=== PATIENT | male | born 1930 | race Caucasian/White ===

== ENCOUNTER 2019-08-12 13:41 | Inpatient (IN) | payer MEDICARE, MEDICAID ==
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
[2019-08-12 18:03] LABS: ABS Eosinophils 0.2 10^3/ul (0-0.6); ABS Lymphocytes 1.6 10^3/ul (1.0-4.8); ABS Monocytes 1.1 10^3/ul (0-0.8); ABS Neutrophils 3.4 10^3/ul (1.5-7.7); Eosinophil % 2.8 %; Hematocrit 33 % (42-52); Mean Corpuscular HGB Conc 33 g/dL (31-36); Mean Corpuscular Hemoglobin 27 pg (27-31); Mean Corpuscular Volume 80 fL (80-94); Mean Platelet Volume 8.5 fL (7.4-10.4); Platelet Count 257 10^3/uL (150-450); Red Blood Count 4.12 10^6 /uL (4.18-5.48); Red Cell Distribution Width 16 % (10-15); White Blood Count 6.3 10^3/uL (3.5-10.8)
[2019-08-12] MEDS ORDERED: Acetaminophen TAB* 325 MG PO PRN (18:07)
[2019-08-12 18:14] LABS: Troponin I 0.01 ng/mL (<0.03)
[2019-08-12 18:17] LABS: ALT 23 U/L (7-52); AST 27 U/L (13-39); Acetaminophen < 15 mcg/mL; Albumin 3.6 g/dL (3.2-5.2); Albumin/Globulin Ratio 0.9 (1-3); Alcohol < 10 mg/dL (<10); Alkaline Phosphatase 115 U/L (34-104); Anion Gap 6 mmol/L (2-11); BUN/Creatinine Ratio 21.1 (8-20); Blood Urea Nitrogen 20 mg/dL (6-24); CO2 Carbon Dioxide 28 mmol/L (22-32); Calcium 9.3 mg/dL (8.6-10.3); Chloride 106 mmol/L (101-111); Creatine Kinase 530 U/L (10-223); EGFR African American 90.5 (>60); EGFR Non-African American 74.8 (>60); Globulin 3.8 g/dL (2-4); Glucose 109 mg/dL (70-100); Potassium 4.2 mmol/L (3.5-5.0); Sodium 140 mmol/L (135-145); Total Protein 7.4 g/dL (6.4-8.9)
[2019-08-12 18:26] LABS: TSH (Thyroid Stimulating Horm) 2.62 mcIU/mL (0.34-5.60)
[2019-08-12 19:34] LABS: Urine Appearance Clear; Urine Bilirubin Negative (Negative); Urine Blood Negative (Negative); Urine Color Straw; Urine Glucose Negative (Negative); Urine Ketones Negative (Negative); Urine Nitrite Negative (Negative); Urine Protein Negative (Negative); Urine Specific Gravity 1.006 (1.010-1.030); Urine Urobilinogen Negative (Negative)
[2019-08-12] MEDS: Docusate CAP* 100 MG PO SCH (19:50)
[2019-08-12] MEDS: QUEtiapine TAB* 100 MG PO SCH (19:50)
[2019-08-12] MEDS: amLODIPine TAB* 5 MG PO SCH (19:50)
[2019-08-12] MEDS: hydrALAZINE IV* 20 MG/ML VIAL IV SLOW PU PRN (19:50)
[2019-08-12 19:52] LABS: Urine Benzodiazepine Screen None Detected (None Detect); Urine Opiates Screen None Detected (None Detect)
[2019-08-12] MEDS: Enoxaparin(*) 40 MG/0.4 ML SYR SUBCUT SCH (20:35)
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
[2019-08-13] MEDS: hydrALAZINE IV* 20 MG/ML VIAL IV SLOW PU PRN (09:27)
[2019-08-13] MEDS: Lisinopril TAB* 10 MG PO SCH (09:30)
[2019-08-13] MEDS: Memantine TAB* 5 MG PO SCH (09:30)
[2019-08-13] MEDS: Cholecalciferol TAB* 1000 UNITS PO SCH (09:30)
[2019-08-13] MEDS: Docusate CAP* 100 MG PO SCH ×2 (09:31→22:00)
[2019-08-13] MEDS: Donepezil TAB* 5 MG PO SCH (09:31)
[2019-08-13] MEDS: amLODIPine TAB* 5 MG PO SCH (09:31)
[2019-08-13] MEDS: Aspirin EC TAB* 81 MG TAB.EC PO SCH (09:31)
[2019-08-13] MEDS: Atenolol TAB* 50 MG PO SCH (09:31)
[2019-08-13] MEDS: QUEtiapine TAB* 100 MG PO SCH ×2 (09:32→22:00)
[2019-08-13] MEDS: Atorvastatin* 40 MG TAB PO SCH (17:24)
[2019-08-13] MEDS: Enoxaparin(*) 40 MG/0.4 ML SYR SUBCUT SCH (22:01)
[2019-08-14] MEDS: Lisinopril TAB* 10 MG PO SCH (10:18)
[2019-08-14] MEDS: Donepezil TAB* 5 MG PO SCH (10:18)
[2019-08-14] MEDS: Atenolol TAB* 50 MG PO SCH (10:19)
[2019-08-14] MEDS: Cholecalciferol TAB* 1000 UNITS PO SCH (10:19)
[2019-08-14] MEDS: amLODIPine TAB* 5 MG PO SCH (10:19)
[2019-08-14] MEDS: QUEtiapine TAB* 100 MG PO SCH ×2 (10:19→20:14)
[2019-08-14] MEDS: Aspirin EC TAB* 81 MG TAB.EC PO SCH (10:19)
[2019-08-14] MEDS: Docusate CAP* 100 MG PO SCH ×2 (10:19→20:14)
[2019-08-14] MEDS ORDERED: Magnesium Hydroxide LIQ* 30 ML UDC PO PRN (11:06)
[2019-08-14] MEDS ORDERED: Polyethylene Glycol 3350* 17 GM PACKET PO PRN (11:06)
[2019-08-14] MEDS ORDERED: Senna TAB 8.6 mg* TAB PO PRN (11:06)
[2019-08-14] MEDS: Memantine TAB* 5 MG PO SCH (11:23)
[2019-08-14] MEDS: Atorvastatin* 40 MG TAB PO SCH (16:53)
[2019-08-14] MEDS: Enoxaparin(*) 40 MG/0.4 ML SYR SUBCUT SCH (20:14)
[2019-08-14] MEDS: Magnesium Hydroxide LIQ* 30 ML UDC PO SCH (20:14)
[2019-08-14] MEDS ORDERED: Docusate CAP* 100 MG PO SCH (21:00)
[2019-08-15] MEDS: hydrALAZINE IV* 20 MG/ML VIAL IV SLOW PU PRN (03:15)
[2019-08-15] MEDS: Aspirin EC TAB* 81 MG TAB.EC PO SCH (08:41)
[2019-08-15] MEDS: Magnesium Hydroxide LIQ* 30 ML UDC PO SCH ×2 (08:41→20:50)
[2019-08-15] MEDS: Lisinopril TAB* 10 MG PO SCH (08:41)
[2019-08-15] MEDS: Cholecalciferol TAB* 1000 UNITS PO SCH (08:41)
[2019-08-15] MEDS: Atenolol TAB* 50 MG PO SCH (08:41)
[2019-08-15] MEDS: Docusate CAP* 100 MG PO SCH ×2 (08:41→20:49)
[2019-08-15] MEDS: amLODIPine TAB* 5 MG PO SCH (08:42)
[2019-08-15] MEDS: Donepezil TAB* 5 MG PO SCH (08:42)
[2019-08-15] MEDS: QUEtiapine TAB* 100 MG PO SCH ×2 (10:09→20:49)
[2019-08-15] MEDS: Memantine TAB* 5 MG PO SCH (10:09)
[2019-08-15] MEDS: Atorvastatin* 40 MG TAB PO SCH (17:14)
[2019-08-15] MEDS: Enoxaparin(*) 40 MG/0.4 ML SYR SUBCUT SCH (20:50)
[2019-08-16] MEDS: Magnesium Hydroxide LIQ* 30 ML UDC PO SCH ×2 (08:16→20:43)
[2019-08-16] MEDS: amLODIPine TAB* 5 MG PO SCH (08:16)
[2019-08-16] MEDS: Atenolol TAB* 50 MG PO SCH (08:17)
[2019-08-16] MEDS: Docusate CAP* 100 MG PO SCH ×2 (08:17→20:43)
[2019-08-16] MEDS: Lisinopril TAB* 10 MG PO SCH (08:17)
[2019-08-16] MEDS: Aspirin EC TAB* 81 MG TAB.EC PO SCH (08:17)
[2019-08-16] MEDS: Cholecalciferol TAB* 1000 UNITS PO SCH (08:17)
[2019-08-16] MEDS: Donepezil TAB* 5 MG PO SCH (08:17)
[2019-08-16] MEDS: QUEtiapine TAB* 100 MG PO SCH ×2 (08:17→20:43)
[2019-08-16] MEDS: Memantine TAB* 5 MG PO SCH (08:17)
[2019-08-16] MEDS: Atorvastatin* 40 MG TAB PO SCH (17:02)
[2019-08-16] MEDS: Enoxaparin(*) 40 MG/0.4 ML SYR SUBCUT SCH (20:43)
[2019-08-17] MEDS: Atenolol TAB* 50 MG PO SCH (08:00)
[2019-08-17] MEDS: Lisinopril TAB* 10 MG PO SCH (08:01)
[2019-08-17] MEDS: Cholecalciferol TAB* 1000 UNITS PO SCH (08:01)
[2019-08-17] MEDS: Donepezil TAB* 5 MG PO SCH (08:01)
[2019-08-17] MEDS: Memantine TAB* 5 MG PO SCH (08:01)
[2019-08-17] MEDS: Aspirin EC TAB* 81 MG TAB.EC PO SCH (08:01)
[2019-08-17] MEDS: amLODIPine TAB* 5 MG PO SCH (08:02)
[2019-08-17] MEDS: Docusate CAP* 100 MG PO SCH ×2 (08:02→20:53)
[2019-08-17] MEDS: QUEtiapine TAB* 100 MG PO SCH ×2 (08:03→20:52)
[2019-08-17] MEDS: Magnesium Hydroxide LIQ* 30 ML UDC PO SCH ×2 (08:04→20:52)
[2019-08-17] MEDS: Atorvastatin* 40 MG TAB PO SCH (16:12)
[2019-08-17] MEDS: Enoxaparin(*) 40 MG/0.4 ML SYR SUBCUT SCH (20:53)
[2019-08-18] MEDS: Magnesium Hydroxide LIQ* 30 ML UDC PO SCH (08:51)
[2019-08-18] MEDS: Lisinopril TAB* 10 MG PO SCH (08:52)
[2019-08-18] MEDS: Docusate CAP* 100 MG PO SCH ×2 (08:52→20:06)
[2019-08-18] MEDS: Donepezil TAB* 5 MG PO SCH (08:52)
[2019-08-18] MEDS: Memantine TAB* 5 MG PO SCH (08:53)
[2019-08-18] MEDS: amLODIPine TAB* 5 MG PO SCH (08:53)
[2019-08-18] MEDS: QUEtiapine TAB* 100 MG PO SCH ×2 (08:55→20:06)
[2019-08-18] MEDS: Atenolol TAB* 50 MG PO SCH (08:55)
[2019-08-18] MEDS: Aspirin EC TAB* 81 MG TAB.EC PO SCH (08:55)
[2019-08-18] MEDS: Cholecalciferol TAB* 1000 UNITS PO SCH (10:11)
[2019-08-18] MEDS: Atorvastatin* 40 MG TAB PO SCH (17:53)
[2019-08-18] MEDS: Enoxaparin(*) 40 MG/0.4 ML SYR SUBCUT SCH (20:07)
[2019-08-19] MEDS: QUEtiapine TAB* 100 MG PO SCH ×2 (08:36→21:55)
[2019-08-19] MEDS: amLODIPine TAB* 5 MG PO SCH (08:37)
[2019-08-19] MEDS: Lisinopril TAB* 10 MG PO SCH (08:37)
[2019-08-19] MEDS: Memantine TAB* 5 MG PO SCH (08:38)
[2019-08-19] MEDS: Donepezil TAB* 5 MG PO SCH (08:38)
[2019-08-19] MEDS: Atenolol TAB* 50 MG PO SCH (08:39)
[2019-08-19] MEDS: Docusate CAP* 100 MG PO SCH ×2 (08:39→21:55)
[2019-08-19] MEDS: Aspirin EC TAB* 81 MG TAB.EC PO SCH (08:39)
[2019-08-19] MEDS: Cholecalciferol TAB* 1000 UNITS PO SCH (08:39)
[2019-08-19] MEDS: Atorvastatin* 40 MG TAB PO SCH (17:25)
[2019-08-19] MEDS: Enoxaparin(*) 40 MG/0.4 ML SYR SUBCUT SCH (21:56)
[2019-08-20] MEDS: QUEtiapine TAB* 100 MG PO SCH ×2 (08:08→21:24)
[2019-08-20] MEDS: Donepezil TAB* 5 MG PO SCH (08:09)
[2019-08-20] MEDS: amLODIPine TAB* 5 MG PO SCH (08:09)
[2019-08-20] MEDS: Cholecalciferol TAB* 1000 UNITS PO SCH (08:09)
[2019-08-20] MEDS: Lisinopril TAB* 10 MG PO SCH (08:09)
[2019-08-20] MEDS: Atenolol TAB* 50 MG PO SCH (08:09)
[2019-08-20] MEDS: Docusate CAP* 100 MG PO SCH ×2 (08:09→21:24)
[2019-08-20] MEDS: Memantine TAB* 5 MG PO SCH (08:09)
[2019-08-20] MEDS: Aspirin EC TAB* 81 MG TAB.EC PO SCH (08:09)
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
[2019-08-20] MEDS: Atorvastatin* 40 MG TAB PO SCH (16:38)
[2019-08-20] MEDS: Enoxaparin(*) 40 MG/0.4 ML SYR SUBCUT SCH (21:25)
[2019-08-21 05:49] LABS: Hematocrit 28 % (42-52); Mean Platelet Volume 8.3 fL (7.4-10.4); Platelet Count 238 10^3/uL (150-450)
[2019-08-21 06:04] LABS: EGFR African American 75.6 (>60); EGFR Non-African American 62.5 (>60)
[2019-08-21] MEDS: Cholecalciferol TAB* 1000 UNITS PO SCH (10:26)
[2019-08-21] MEDS: QUEtiapine TAB* 100 MG PO SCH ×2 (10:27→22:55)
[2019-08-21] MEDS: Donepezil TAB* 5 MG PO SCH (10:27)
[2019-08-21] MEDS: Aspirin EC TAB* 81 MG TAB.EC PO SCH (10:28)
[2019-08-21] MEDS: Docusate CAP* 100 MG PO SCH ×2 (10:28→22:55)
[2019-08-21] MEDS: Lisinopril TAB* 10 MG PO SCH (10:28)
[2019-08-21] MEDS: Memantine TAB* 5 MG PO SCH (10:28)
[2019-08-21] MEDS: amLODIPine TAB* 5 MG PO SCH (10:29)
[2019-08-21] MEDS: Atenolol TAB* 50 MG PO SCH (10:29)
[2019-08-21] MEDS: Atorvastatin* 40 MG TAB PO SCH (16:44)
[2019-08-21] MEDS: Enoxaparin(*) 40 MG/0.4 ML SYR SUBCUT SCH (22:56)
[2019-08-22] MEDS: Cholecalciferol TAB* 1000 UNITS PO SCH (09:43)
[2019-08-22] MEDS: amLODIPine TAB* 5 MG PO SCH (09:44)
[2019-08-22] MEDS: Memantine TAB* 5 MG PO SCH (09:44)
[2019-08-22] MEDS: Lisinopril TAB* 10 MG PO SCH (09:44)
[2019-08-22] MEDS: Aspirin EC TAB* 81 MG TAB.EC PO SCH (09:45)
[2019-08-22] MEDS: Donepezil TAB* 5 MG PO SCH (09:45)
[2019-08-22] MEDS: Atenolol TAB* 50 MG PO SCH (09:45)
[2019-08-22] MEDS: Docusate CAP* 100 MG PO SCH ×2 (09:45→19:56)
[2019-08-22] MEDS: QUEtiapine TAB* 100 MG PO SCH ×2 (09:46→19:56)
[2019-08-22] MEDS: Atorvastatin* 40 MG TAB PO SCH (17:08)
[2019-08-22] MEDS: Enoxaparin(*) 40 MG/0.4 ML SYR SUBCUT SCH (19:56)
[2019-08-23] MEDS: Lisinopril TAB* 10 MG PO SCH (09:39)
[2019-08-23] MEDS: Atenolol TAB* 50 MG PO SCH (09:40)
[2019-08-23] MEDS: QUEtiapine TAB* 100 MG PO SCH ×2 (09:40→20:09)
[2019-08-23] MEDS: Donepezil TAB* 5 MG PO SCH (09:41)
[2019-08-23] MEDS: Memantine TAB* 5 MG PO SCH (09:41)
[2019-08-23] MEDS: Cholecalciferol TAB* 1000 UNITS PO SCH (09:41)
[2019-08-23] MEDS: Docusate CAP* 100 MG PO SCH ×2 (09:41→20:09)
[2019-08-23] MEDS: Aspirin EC TAB* 81 MG TAB.EC PO SCH (09:41)
[2019-08-23] MEDS: amLODIPine TAB* 5 MG PO SCH (09:42)
[2019-08-23] MEDS: Atorvastatin* 40 MG TAB PO SCH (17:30)
[2019-08-23] MEDS: Enoxaparin(*) 40 MG/0.4 ML SYR SUBCUT SCH (20:09)
[2019-08-24] MEDS: QUEtiapine TAB* 100 MG PO SCH ×2 (09:04→19:34)
[2019-08-24] MEDS: Aspirin EC TAB* 81 MG TAB.EC PO SCH (09:04)
[2019-08-24] MEDS: Atenolol TAB* 50 MG PO SCH (09:04)
[2019-08-24] MEDS: Donepezil TAB* 5 MG PO SCH (09:04)
[2019-08-24] MEDS: Lisinopril TAB* 10 MG PO SCH (09:04)
[2019-08-24] MEDS: Cholecalciferol TAB* 1000 UNITS PO SCH (09:04)
[2019-08-24] MEDS: Memantine TAB* 5 MG PO SCH (09:05)
[2019-08-24] MEDS: Docusate CAP* 100 MG PO SCH ×2 (09:05→19:34)
[2019-08-24] MEDS: amLODIPine TAB* 5 MG PO SCH (09:05)
[2019-08-24] MEDS: Atorvastatin* 40 MG TAB PO SCH (17:33)
[2019-08-24] MEDS: Enoxaparin(*) 40 MG/0.4 ML SYR SUBCUT SCH (19:34)
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
[2019-08-25 08:06] VITALS: BP 175/72
[2019-08-25] MEDS: Cholecalciferol TAB* 1000 UNITS PO SCH (09:09)
[2019-08-25] MEDS: Aspirin EC TAB* 81 MG TAB.EC PO SCH (09:09)
[2019-08-25] MEDS: QUEtiapine TAB* 100 MG PO SCH (09:09)
[2019-08-25] MEDS: Docusate CAP* 100 MG PO SCH (09:10)
[2019-08-25] MEDS: Donepezil TAB* 5 MG PO SCH (09:10)
[2019-08-25] MEDS: Lisinopril TAB* 10 MG PO SCH (09:10)
[2019-08-25] MEDS: Atenolol TAB* 50 MG PO SCH (09:10)
[2019-08-25] MEDS: amLODIPine TAB* 5 MG PO SCH (09:10)
[2019-08-25] MEDS: Memantine TAB* 5 MG PO SCH (09:13)
== END 2019-08-25 10:00 | DRG 884 ==
LOC: ED 13:41 → MED 18:07
PROVIDERS: ADMIT Hospitalist; ATTEND Hospitalist
DX: F03.91 Unspecified dementia, unspecified severity, with behavioral disturbance (principal); F20.9 Schizophrenia, unspecified; I25.10 Atherosclerotic heart disease of native coronary artery without angina pectoris; I10 Essential (primary) hypertension; I35.0 Nonrheumatic aortic (valve) stenosis; E78.5 Hyperlipidemia, unspecified; Z87.891 Personal history of nicotine dependence; Z95.0 Presence of cardiac pacemaker; Z85.46 Personal history of malignant neoplasm of prostate; Z85.118 Personal history of other malignant neoplasm of bronchus and lung; Z92.3 Personal history of irradiation; Z86.73 Personal history of transient ischemic attack (TIA), and cerebral infarction without residual deficits; Z79.82 Long term (current) use of aspirin; Z79.899 Other long term (current) drug therapy
CPT/HCPCS: 36415; 70450; 71045; 80053; 80307; 80320; 80329; 81003; 82140; 82550; 82565; 83605; 83735; 84443; 84484; 85014; 85018; 85025; 85049; 93005; 99284; A9270-GY; G0480; G8978-GP-CJ; G8979-GP-CI; J0360; J1650